=== PATIENT | male | born 1980 | race Caucasian/White ===

== ENCOUNTER 2016-12-11 20:18 | Emergency (ER) | payer BC, OTHER ==
[2016-12-11 20:51] LABS: Urine Bilirubin 1 mg/dl (NEGATIVE); Urine Blood 250 /ul (NEGATIVE); Urine Ketone Negative (NEGATIVE); Urine Nitrite Negative (NEGATIVE); Urine Protein 15 mg/dL (NEGATIVE); Urine Specific Gravity >=1.030 SP.GR. (1.005-1.030); Urine Urobilinogen Normal (NORMAL)
[2016-12-11] MEDS ORDERED: KETOROLAC TROMETHAMINE 30 MG/ML VIAL IV ONE (21:03)
[2016-12-11] MEDS ORDERED: NORMAL SALINE 1,000 ML IV ONE (21:03)
--- NOTE | 2016-12-11 21:04 | ERNOTE ---
ER Male HPI Stated Complaint: RT GROIN PAIN ER Male: dysuria Time Seen by Provider: 12/11/16 20:54 Source: patient Exam Limitations: no limitations Immunizations: IMMUNIZATION HX Immunizations Up to Date Yes History of Influenza Vaccine No Hx Pneumococcal Vaccination No Allergies/Adverse Reactions: Allergies No Known Allergies Allergy (Unverified 12/11/16 20:35) Home Medications: HOME MEDICATIONS Atorvastatin Calcium [Lipitor] 20 mg PO DAILY 12/11/16 [Last Taken Unknown] B-Complex with Vitamin C [B-Complex Plus Vitamin C] 1 each PO DAILY 12/11/16 [ Last Taken Unknown] Lisinopril 5 mg PO DAILY 12/11/16 [Last Taken Unknown] [place]-3 Fatty Acids/Fish Oil [Fish Oil 1,000 mg Capsule] 2 each PO DAILY [Last Taken Unknown] Ubidecarenone [Coq10] 50 mg PO DAILY 12/11/16 [Last Taken Unknown] metFORMIN HCL [Glucophage] 1,000 mg PO DAILY 12/11/16 [Last Taken Unknown] oxyCODONE HCL/ACETAMINOPHEN [Oxycodone-Acetaminophen 5-325] 1 - 2 each PO QID PRN #30 tablet 12/11/16 [Last Taken Unknown] - History of Present Illness Narrative: Pt had some right groin pain a few weeks ago but felt it was from his back. A few days ago started to have dysuria and has started to increase fluids without benefit. Today pain began to radiate down into his right testicle, which is usual for his kidney stones Timing: Present: getting worse Quality: Present: moderate, severe, stabbing Onset Location: Present: groin Radiation: Present: scrotal Activities at Onset: Present: none Prior Abdominal Problems: Present: similar symptoms - with kidney stones Sexual Lula History: Present: single partner Review of Systems - Review of Systems Constitutional: Absent: recent illness EYE: Present: no symptoms reported ENT: Present: no symptoms reported Respiratory: Present: no symptoms reported Cardiology: Present: no symptoms reported Gastrointestinal/Abdominal: Absent: nausea, vomiting Genitourinary: Present: See HPI Musculoskeletal: Present: back pain Skin: Present: no symptoms reported Neurological: Present: no symptoms reported Endocrine: Present: no symptoms reported Hematologic/Lymphatic: Present: no symptoms reported Psych: Present: no symptoms reported - Patient's Past Medical History Patient History - Medical: Diabetes Type 2, Kidney stone Patient History - Cardiac/Respiratory: No pertinent hx Patient History - Cancer: No Hx of Cancer Patient History - Surgical Procedures: T & A Patient History - Other: None - Social History Living Situations: spouse Abuse History: No History of abuse Psych History: No pertinent hx Smoking Status: Never smoker Alcohol Use: rarely Drug Use: none - Immunizations Immunizations Up to Date: Yes Hx Pneumococcal Vaccination: No History of Influenza Vaccine: No Physical Exam - Physical Exam General Appearance: Present: wd/wn, alert, no apparent distress Ears, Nose, Throat: Present: normal ENT inspection Neck: Present: normal inspection, nontender Respiratory: Present: no respiratory distress Gastrointestinal/Abdominal: Present: normal bowel sounds, nontender, nondistended, soft Back Exam: Present: normal inspection, normal range of motion, no CVA tenderness , no vertebral tenderness Extremity Exam: Present: normal inspection, non-tender, normal range of motion - No pain with SI or hip tests right leg Neurological Exam: Present: alert, normal mood/affect, no motor/sensory deficits Skin Exam: Present: normal color, warm/dry Lymphatic Exam: Present: no adenopathy ED Progress - Results and Orders Patient's Lab Results:: I have reviewed the patient's lab results. Results and Orders: Laboratory Tests 12/11/16 12/11/16 12/11/16 20:39 21:18 21:18 WBC 16.0 H Hgb 15.5 Hct 45.9 Plt Count 241 Sodium 141 Potassium 3.6 Chloride 103 Carbon Dioxide 29.0 Anion Gap 12.6 BUN 10 Creatinine 1.08 Est GFR (Non-Af Amer) 81 BUN/Creatinine Ratio 9.3 Random Glucose 128 H Calcium 9.5 Total Bilirubin 0.9 AST 25 ALT 47 Alkaline Phosphatase 74 Total Protein 7.6 Albumin 4.5 Urine Color Yellow Urine Appearance Clear Urine pH 6.0 Ur Specific [place] >=1.030 Urine Protein 15 H Urine Glucose (UA) Negative Urine Ketones Negative Urine Blood 250 H Urine Nitrate Negative Urine Bilirubin 1 H Urine Ictotest Negative Prot Sulfosalicylic Acd QNS Urine Urobilinogen Normal Ur Leukocyte Esterase Negative Urine RBC 10-25 H Urine WBC 0-5 Ur Epithelial Cells None seen Urine Bacteria 4+ H Hyaline Casts Trace Urine Mucus Moderate - 2+ H Urine Culture Comments No culture indicated - Vital Signs Patient's Vital Signs:: I have reviewed the patient's vital signs. Vital Signs: Vital Signs 12/11/16 20:28 Temperature 36.2 C L Pulse Rate 62 Respiratory 16 Rate Blood Pressure 170/96 O2 Sat by Pulse 98 Oximetry - CT/Ultrasound CT/Ultrasound Narrative: 1 mm non-obstructing stone in the right kidney, mild right hydronephrosis extending down to a 4.2 mm obstructing stone at the right UVJ. Otherwise normal. - Progress/Reassessment Chief Complaint: Genitourinary Problem Progress:: Improved Progress Note-Subjective: 12/11/16 22:05 Pt was feeling better and tried to urinate, pain worsened and he began vomiting. Nubain and phenergan ordered Departure Clinical Impression: Renal colic on right side - Departure Disposition: Home Follow Up Needed Condition: Good Instructions: Kidney Stones, [id number] Referrals: Nancy Domingo DO [Primary Care Provider] - Prescriptions: oxyCODONE HCL/ACETAMINOPHEN [Oxycodone-Acetaminophen 5-325] 1 - 2 each PO QID PRN #30 tablet PRN Reason: Pain
--- OUTSIDE RECORDS SUMMARY | 2016-12-11 21:06 | XMS REPORT | Continuity of Care Document ---
:1980 Author Organization [facility] ([facility]) [place] [address] Phone [phone] Care Team Providers Name Role Phone Andrea Hanks Primary Care Provider [phone] Source Comments This disclosure is being made pursuant to the Care Everywhere program, applicable federal and state laws, and may not contain all informaitonavailable regarding this patient.[facility] ([facility]) Active Allergies and Adverse Reactions Allergen Noted Date Severity Reactions Comments Penicillins 11/12/2011 Unknown Current Medications No known medications Active Problems Problem Noted Date Arthritis 11/13/2011 Right groin pain 11/13/2011 Social History Tobacco Use Types Packs/Day Years Used Date Never Smoker Smokeless Tobacco: Never Used Alcohol Use Drinks/Week oz/Week Comments No Last Filed Vital Signs Vital Sign Reading Time Taken Blood Pressure 143/68 12/13/2011 2:12 PM CDT Pulse 68 12/13/2011 2:12 PM CDT Temperature 36.6 C (97.9 F) 12/13/2011 2:12 PM CDT Respiratory Rate 16 12/13/2011 2:12 PM CDT Height 1.676 m (5' 6") 12/13/2011 2:12 PM CDT Weight 132.904 kg (293 lb) 12/13/2011 2:12 PM CDT Body Mass Index 47.31 12/13/2011 2:12 PM CDT Oxygen Saturation 97% 11/13/2011 3:13 PM CDT Plan of Care Health Maintenance Due Date Last Done Comments Hepatitis B Vaccine (1 of 3 - Primary Series) 1980 Tdap Vaccine 1989 Lipid Disorder Screening 01/04/1996 MMR Vaccine 01/04/1996 Td Vaccine 01/04/1996 Influenza Vaccine: Seasonal (#1) 03/25/2016 Results from Last 3 Months Not on file
[2016-12-11 21:10] LABS: Urine Appearance Clear; Urine Color Yellow
[2016-12-11 21:11] LABS: Urine Bacteria 4+; Urine Hyaline Cast TRACE /LPF; Urine Mucus Moderate - 2+; Urine WBC 0-5 /hpf (0-5)
[2016-12-11] MEDS ORDERED: ONDANSETRON HCL/PF 2 MG/ML VIAL ONE (21:11)
[2016-12-11] MEDS ORDERED: ONDANSETRON HCL/PF 2 MG/ML VIAL IV ONE (21:11)
[2016-12-11] MEDS ORDERED: KETOROLAC TROMETHAMINE 30 MG/ML VIAL ONE (21:11)
[2016-12-11 21:38] LABS: Albumin * 4.5 gm/dl (3.4-5.0); Anion Gap 12.6 mmol/L (6.8-13.8); BUN/Creatinine Ratio 9.3 (9.0-21.6); Bilirubin, Total 0.9 mg/dL (0.0-1.1); Ca. Corrected For Albumin 8.8 mg/dL (8.4-10.2); Calcium * 9.5 mg/dL (7.9-10.9); Potassium 3.6 mmol/L (3.4-4.6); Total Protein 7.6 gm/dL (6.2-8.2)
[2016-12-11 21:49] LABS: Hematocrit 45.9 % (42.0-52.0); Hemoglobin 15.5 gm/dL (13.5-18.0); Mean Cell Volume 87.4 fl (78-100); Mean Corpuscular Hemoglobin 29.5 pg (27-31); Mean Corpuscular Hgb Conc 33.8 g/dl (32-36); Mean Platelet Volume 10.9 fl (6.0-9.5); Neutrophil # 11.8 K/mm3 (1.3-6.0); Neutrophil % 73.8 % (42-75.0); Platelet Count 241 K/mm3 (150-450); Red Blood Count 5.25 M/mm3 (4.7-6.0); Red Cell Distribution Width 12.4 % (11.5-14.0)
[2016-12-11] MEDS ORDERED: NALBUPHINE HCL 20 MG/ML AMPUL ONE ×2 (22:04→22:44)
[2016-12-11] MEDS ORDERED: PROMETHAZINE HCL 25 MG/ML AMPUL IM ONE (22:04)
[2016-12-11] MEDS ORDERED: NALBUPHINE HCL 20 MG/ML AMPUL IV ONE ×2 (22:04→22:45)
[2016-12-11] MEDS ORDERED: PROMETHAZINE HCL 25 MG/ML AMPUL ONE (22:04)
[2016-12-11] MEDS ORDERED: oxyCODONE HCL/ACETAMINOPHEN 1 TAB TABLET PO ONE ×2 (23:10→23:14)
[2016-12-11] MEDS ORDERED: oxyCODONE HCL/ACETAMINOPHEN 1 TAB TABLET ONE ×2 (23:12→23:16)
[2016-12-11 23:32] VITALS: BP 121/73
== END 2016-12-11 23:30 | disposition home or self-care (01) ==
LOC: ER 20:18
DX: N23 Unspecified renal colic (principal); E11.9 Type 2 diabetes mellitus without complications; Z87.442 Personal history of urinary calculi

== ENCOUNTER 2017-09-28 02:37 | Emergency (ER) | payer BC ==
[2017-09-28 03:01] LABS: Hematocrit 46.3 % (42.0-52.0); Hemoglobin 15.6 gm/dL (13.5-18.0); Mean Cell Volume 86.9 fl (78-100); Mean Corpuscular Hemoglobin 29.3 pg (27-31); Mean Corpuscular Hgb Conc 33.7 g/dl (32-36); Mean Platelet Volume 10.2 fl (6.0-9.5); Neutrophil # 5.3 K/mm3 (1.3-6.0); Neutrophil % 58.2 % (42-75.0); Platelet Count 227 K/mm3 (150-450); Red Blood Count 5.33 M/mm3 (4.7-6.0); Red Cell Distribution Width 12.4 % (11.5-14.0); White Blood Count 9.1 K/mm3 (4.0-10.5)
[2017-09-28 03:02] VITALS: BP 139/84
[2017-09-28] MEDS ORDERED: ASPIRIN 81 MG TAB.CHEW PO ONE (03:11)
[2017-09-28] MEDS ORDERED: ASPIRIN 81 MG TAB.CHEW ONE (03:12)
[2017-09-28 03:19] LABS: ALT 91 U/L (19-67); AST 38 U/L (0-48); Albumin * 4.1 gm/dl (3.4-5.0); Alkaline Phosphatase * 90 U/L (50-170); Anion Gap 10.8 mmol/L (6.8-13.8); BUN/Creatinine Ratio 14.1 (9.0-21.6); Bilirubin, Total 0.3 mg/dL (0.0-1.1); Blood Urea Nitrogen 14 mg/dL (6-23); Ca. Corrected For Albumin 8.8 mg/dL (8.4-10.2); Calcium * 9.2 mg/dL (7.9-10.9); Carbon Dioxide 30.1 mmol/L (24-32.6); Chloride 103 mmol/L (97-106); Glucose * 136 mg/dL (70-110); Potassium 3.9 mmol/L (3.4-4.6); Sodium 140 mmol/L (132-142); Total Protein 7.3 gm/dL (6.2-8.2)
[2017-09-28 03:23] LABS: Troponin I Less than 0.017 ng/ml (0.00-0.10)
--- NOTE | 2017-09-28 04:13 | ERNOTE ---
Chest Pain/Cardiac HPI Chief Complaint: Chest Pain Time Seen by Provider: 09/28/17 03:44 Source: patient, family Exam Limitations: no limitations Immunizations: IMMUNIZATION HX Immunizations Up to Date Yes History of Influenza Vaccine No Hx Pneumococcal Vaccination No Allergies/Adverse Reactions: Allergies No Known Allergies Allergy (Unverified 12/11/16 20:35) Home Medications: HOME MEDICATIONS Atorvastatin Calcium [Lipitor] 20 mg PO DAILY 12/11/16 [Last Taken Unknown] B-Complex with Vitamin C [B-Complex Plus Vitamin C] 1 each PO DAILY 12/11/16 [ Last Taken Unknown] Lisinopril 5 mg PO DAILY 12/11/16 [Last Taken Unknown] [place]-3 Fatty Acids/Fish Oil [Fish Oil 1,000 mg Capsule] 2 each PO DAILY [Last Taken Unknown] Ubidecarenone [Coq10] 50 mg PO DAILY 12/11/16 [Last Taken Unknown] metFORMIN HCL [Glucophage] 1,000 mg PO DAILY 12/11/16 [Last Taken Unknown] Narrative: Patient had fallen asleep in his chair. Around midnight he woke up and went upstairs to go to bed. When he laid down he started to have palpitations (fast heart beat), was nauseated and clammy, symptoms resolved after a short time when he got up, denies any chest pain, had similar symptoms two years ago and thought it might have been an anxiety attack. He is feeling back to normal now, also has a history of GERD and has been off his medications for a few days Date (Duration): 09/28/17 Time (Timing): 00:00 Timing: intermittent Activities at Onset: none Nitro Today/Relief: no nitro taken today Aspirin Treatment Today: no aspirin today Associated Symptoms: Present: diaphoresis, palpitations, nausea. Absent: dizziness, shortness of breath, fever/chills, vomiting Review of Systems - Review of Systems Constitutional: Present: recent illness - URI symptoms last week, resolved EYE: Absent: vision changes ENT: Absent: nose pain, nose congestion, sore throat Respiratory: Absent: shortness of breath, cough Cardiology: Present: See HPI, palpitations. Absent: chest pain Gastrointestinal/Abdominal: Present: nausea. Absent: vomiting, diarrhea, abdominal pain Genitourinary: Present: no symptoms reported Musculoskeletal: Present: no symptoms reported Skin: Absent: rash Neurological: Absent: See HPI, weakness, numbness - Patient's Past Medical History Patient History - Medical: Diabetes Type 2, Kidney stone Patient History - Cardiac/Respiratory: Hypertension, Hyperlipidemia Patient History - Cancer: No Hx of Cancer Patient History - Surgical Procedures: T & A Patient History - Other: None - Family History Mother Family History - Medical: Diabetes Type 2 Family History - Cardiac/Respiratory: Hyperlipidemia Family History - Cancer: No pertinent family hx Father Family History - Medical: No pertinent hx Family History - Cardiac/Respiratory: Hyperlipidemia Family History - Cancer: No pertinent family hx - Social History Living Situations: spouse Abuse History: No History of abuse Psych History: No pertinent hx Smoking Status: Never smoker Have you smoked in the past 12 months: No Do you dip or chew tobacco: No Patient requests Smoking Cessation Consult: No Initiate information on Smoking Cessation: No Alcohol Use: none Drug Use: none - Immunizations Immunizations Up to Date: Yes Hx Pneumococcal Vaccination: No History of Influenza Vaccine: No Physical Exam - Physical Exam General Appearance: Present: wd/wn, alert, no apparent distress, obese Ears, Nose, Throat: Present: normal pharynx Respiratory: Present: no respiratory distress, normal breath sounds, no accessory muscle use, chest nontender, lungs clear Cardiovascular/Chest: Present: regular rate, rhythm, no murmur Gastrointestinal/Abdominal: Present: nontender, nondistended, soft Extremity Exam: Present: no edema Neurological Exam: Present: alert, oriented, normal mood/affect Skin Exam: Present: normal color, warm/dry ED Progress - Results and Orders Patient's Lab Results:: I have reviewed the patient's lab results. - Vital Signs Patient's Vital Signs:: I have reviewed the patient's vital signs. Vital Signs: Vital Signs 09/28/17 09/28/17 02:42 02:53 Temperature 36.3 C L 36.3 C L Pulse Rate 65 72 Respiratory 16 14 Rate Blood Pressure 149/82 139/84 O2 Sat by Pulse 96 96 Oximetry - EKG EKG: NSR, RBBB, other - no acute changes, no prior EKG read: Interp. by me - X-Ray X-Ray #1 X-Ray: chest - no acute changes Interpretation: Interp. by me - Progress/Reassessment Chief Complaint: Chest Pain Progress Note-Subjective: 09/28/17 04:13 discussed test results and limitation of test to rule our CAD Departure Clinical Impression: Palpitations - Departure Disposition: Home self-care Condition: Good Instructions: Palpitations, [id number] Additional Instructions: call your doctor for follow up after the weekend Referrals: Nancy Domingo DO [Primary Care Provider] -
== END 2017-09-28 04:28 | disposition home or self-care (01) ==
LOC: ER 02:37
DX: R00.2 Palpitations; Z87.442 Personal history of urinary calculi; E11.9 Type 2 diabetes mellitus without complications; I10 Essential (primary) hypertension; E78.5 Hyperlipidemia, unspecified